=== PATIENT | male | born 1960 | race Caucasian/White ===

== ENCOUNTER 2017-01-06 07:34 | Observation (INO) | payer SELFPAY ==
[~2017-01-06] VITALS: Ht 177.8 cm; Wt 83.4 kg
[2017-01-06 07:53] LABS: POINT-OF-CARE METER ID UU13113702
[2017-01-06 07:54] LABS: BASOPHIL COUNT 0.1 K/uL (0-0.1); EOSINOPHIL (%) 3.9 % (0-5); EOSINOPHIL COUNT 0.3 K/uL (0-0.3); HEMATOCRIT 44.4 % (38.0-50.0); IMMATURE GRANULOCYTE (%) 0.4 % (0.0-0.7); INSTRUMENT ABS NEUTROPHIL CT 3.7 K/uL; LYMPHOCYTE COUNT 3.1 K/uL (1.0-2.8); MCH 30.9 PG (29.0-34.0); MCV 90.8 FL (86-99); MEAN PLAT.VOLUME 10.6 uM^3 (9.0-12.4); MONOCYTE COUNT 0.7 K/uL (0-0.8); NEUTROPHIL (%) 47.2 % (45-76); NEUTROPHIL COUNT 3.7 K/uL (1.8-6.4); PLATELET COUNT 228 K/uL (156-360); RBC DIS.WIDTH-CV 12.5 % (11.8-14.6); RED BLOOD COUNT 4.89 M/uL (4.00-5.50); WHITE BLOOD COUNT 7.9 K/uL (4.1-10.2)
[2017-01-06 07:59] LABS: PROTHROMBIN TIME 11.2 SEC (10.2-12.9)
[2017-01-06 08:02] LABS: PTT 29.8 SEC (25-37)
[2017-01-06] MEDS ORDERED: ZESTORETIC 20-1 EAC1 PO (08:29)
[2017-01-06] MEDS ORDERED: AMLODIPINE-ATO1 EAC3 PO (08:31)
[2017-01-06 08:32] LABS: TROP-I INTERPRETATION NEGATIVE; TROPONIN-I < 0.01 ng/mL (0.0-0.30)
[2017-01-06] MEDS ORDERED: LOPRESSOR25 MG PO (08:32)
[2017-01-06] MEDS ORDERED: LO-DOSE ASPIRIN81 M1 PO (08:33)
[2017-01-06 08:34] LABS: AMYLASE 65 IU/L (1-118); CHLORIDE 105 mEq/L (99-109); POTASSIUM 3.6 mEq/L (3.7-5.4); SODIUM 142 mEq/L (136-147)
[2017-01-06 08:36] LABS: GLUCOSE 117 mg/dL (70-99)
[2017-01-06 08:37] LABS: ANION GAP 13 MEQ/L (2-14)
[2017-01-06 08:39] LABS: SERUM ETHYL ALCOHOL < 10 mg/dL
[2017-01-06 08:40] LABS: GFR ESTIMATE (CALCULATED) > 59 mL/min/
[2017-01-06 08:41] LABS: UREA NITROGEN (BUN) 24 mg/dL (9-23)
[2017-01-06 08:43] LABS: LIPASE 41 U/L (1.0-51.0)
[2017-01-06 14:03] LABS: Estimated Average Glucose 111 mg/dL (70-123); HEMOGLOBIN A1c (GLYCOHEMOGLOB) 5.5 % HGB (Below 5.7)
[2017-01-06 14:28] VITALS: BP 139/76
[2017-01-06 14:35] LABS: TROP-I INTERPRETATION NEGATIVE; TROPONIN-I < 0.01 ng/mL (0.0-0.30)
[2017-01-06 14:36] LABS: HDL CHOLESTEROL 51 MG/DL (Desirable>=40); LDL CHOLESTEROL 103 mg/dL (Desirable<100); NON-HDL CHOLESTEROL 116 mg/dL (Desirable<160); TOTAL CHOLESTEROL 167 mg/dL (Desirable<200); TRIGLYCERIDES 63 MG/DL (Normal: <150)
[2017-01-06 19:00] VITALS: BP 131/81
[2017-01-06 20:22] LABS: TROP-I INTERPRETATION NEGATIVE; TROPONIN-I < 0.01 ng/mL (0.0-0.30)
[2017-01-06 23:24] VITALS: BP 125/74
[2017-01-07 03:01] VITALS: BP 138/77
[2017-01-07 06:10] LABS: ANION GAP 10 MEQ/L (2-14); CHLORIDE 103 MEQ/L (99-109); GFR ESTIMATE (CALCULATED) > 59 mL/min/; GLUCOSE 88 mg/dL (70-99); SAMPLE HEMOLYSIS CHECK 0; SAMPLE ICTERIC CHECK 0; SAMPLE LIPEMIA CHECK 0; SODIUM 141 MEQ/L (136-147); UREA NITROGEN (BUN) 19 mg/dL (9-23)
[2017-01-07 07:20] VITALS: BP 142/79
[2017-01-07] MEDS ORDERED: AMLODIPINE BESYL5 MG PO (10:28)
[2017-01-07] MEDS ORDERED: ATORVASTATIN CA80 MG PO (10:28)
== END 2017-01-07 11:55 | disposition home or self-care (01) ==
LOC: EME 07:34 → 5WEST 10:55 → EDOF 10:55 → ENRESERV 10:56 → 5WEST 13:49
PROVIDERS: Emergency Medicine; Internal Medicine
DX: G45.9 Transient cerebral ischemic attack, unspecified (principal); I10 Essential (primary) hypertension; E78.5 Hyperlipidemia, unspecified; Z82.3 Family history of stroke; I27.2 Other secondary pulmonary hypertension; Z79.82 Long term (current) use of aspirin
CPT/HCPCS: 70450; 70496; 70498; 70551; 80048; 80061; 81003; 82150; 82948; 83036; 83690; 84443; 84484; 85025; 85610; 85730; 86850; 86900; 86901; 93005; 93306; 99281; 99285; G0378; G0480; J1650; J7030